=== PATIENT | male | born 1980 | race Caucasian/White ===

== ENCOUNTER → 2016-09-23 | Outpatient (CLI) | payer OTHER ==
--- NOTE | 2016-09-23 11:15 | Diagnostic Imaging Report ---
CT abdomen and pelvis without intravenous contrast Indication: Right lower quadrant pain Comparison: None, Technique: Axial images were obtained from the lung bases to the bilateral proximal femurs without IV contrast. Coronal reconstructions were made. total DLP: 522, CTDI9.8 FINDINGS: Hypoventilatory and atelectatic changes of the lung bases are noted. Assessment of the solid organs is limited due to lack of IV contrast. A 1 cm cyst is seen within the right lobe of the liver. No focal splenic, pancreatic, or adrenal lesions. No evidence of hydronephrosis or nephrolithiasis. There is fatty infiltration of the colonic mucosa primarily involving the descending colon. Minimal diverticulosis is noted. No evidence of appendicitis. Mild nonspecific haziness and inflammatory changes seen throughout the mesentery. No evidence of free air or free fluid. Degenerative changes of the spine are noted. Transitional vertebral body anatomy is noted. There is 6 mm osseous lesion of the anterior left iliac bone with well-defined zone of transition. Additional 3 mm osseous lesion of the anterior right iliac bone is seen with well-defined transition zone. IMPRESSION: No evidence of acute appendicitis Mild inflammatory changes seen throughout the mesentery. Findings suggest mesenteritis or mesenteric adenitis. Diverticulitis would be considered less likely. Minimal diverticulosis Small benign-appearing osseous lesions of the iliac bone. Consider follow-up surveillance is noted.
== END ==
LOC: RAD 02:53
PROVIDERS: ATTEND Emergency Medicine
DX: R10.31 Right lower quadrant pain (principal)